=== PATIENT | female | born 1990 | race Caucasian/White ===

== ENCOUNTER 2017-05-27 01:24 | Emergency (ER) | payer BC, OTHER ==
[2017-05-27 01:51] VITALS: BP 135/101; PULSE 107; RESP 16; TEMP 97.5; O2SAT 98
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
== END 2017-05-27 03:32 | disposition home or self-care (01) ==
LOC: EDUNIT#
PROC: 0HQ1XZZ Repair Face Skin, External Approach (ICD-10-PCS; principal; 2017-05-27)
DX: S01.81XA Laceration without foreign body of other part of head, initial encounter (principal); Y04.0XXA Assault by unarmed brawl or fight, initial encounter; Y92.59 Other trade areas as the place of occurrence of the external cause; Y99.8 Other external cause status; Y93.89 Activity, other specified; F10.920 Alcohol use, unspecified with intoxication, uncomplicated